=== PATIENT | female | born 1985 | race Caucasian/White ===

== ENCOUNTER → 2021-11-24 | Outpatient (CLI) | payer BC ==
[~2021-11-24] MED LIST: CETI5 PO; FAMO20 PO; IBUP800 PO; MEDR150I; OMEP20ER PO; TUMS; Vistaril25 MG PO
[2021-11-25 15:10] LABS: HPV 16 Negative (Negative); HPV 18 Negative (Negative); HPV OTHER HR TYPES Negative (Negative)
== END | disposition home or self-care (01) ==
LOC: LAB 11:02 → LAB SHORT 11:02
PROVIDERS: Obstetrics & Gynecology
DX: Z12.4 Encounter for screening for malignant neoplasm of cervix (principal)
CPT/HCPCS: 87624; G0123